=== PATIENT | female | born 1955 | race Caucasian/White ===

== ENCOUNTER 2025-01-28 10:12 | Outpatient (CLI) | payer MEDICARE | END 2025-01-28 10:13 | disposition home or self-care (01) | LOC: SCSRAD 10:12 | PROVIDERS: ATTEND Family Medicine | DX: M50.30 Other cervical disc degeneration, unspecified cervical region (principal); M47.812 Spondylosis without myelopathy or radiculopathy, cervical region | CPT/HCPCS: 72040 ==